=== PATIENT | female | born 1990 | race Caucasian/White ===

== ENCOUNTER 2020-10-27 14:08 | Emergency (ER) | payer OTHER ==
[2020-10-27] MEDS ORDERED: SODIUM CHLORIDE 0.9% 1,000 ML IV STA (15:32)
[2020-10-27] MEDS ORDERED: diphenhydrAMINE 50 MG/ML 1 ML VIAL IVP STA (15:32)
[2020-10-27] MEDS ORDERED: methylPREDNISolone SOD SUCCI 125 MG/2 ML VIAL IV STA (15:33)
--- NOTE | 2020-10-27 15:41 | ED ---
Headache HPI - General Chief Complaint: Headache Stated Complaint: headache Source: patient, RN notes reviewed, old records reviewed Mode of arrival: ambulatory Limitations: no limitations - History of Present Illness Initial Comments: 30-year-old white female patient presents to the emergency room with complaints of a headache that started yesterday at 1 PM and has gradually gotten worse. Patient states that she took a nap to relieve the headache but woke up and still had it. Patient states that she feels the pain is worsening behind her left eye and into her left mormonism and radiates on the left side of her face. She states that she feels like her ear is plugged. Patient states that she has had history migraine headaches in the past and was prescribed Imitrex back in February but that did not relieve her pain so she stopped taking it. Patient states that she's been having headaches for the past week every day however this is much worse. Denies any medicine on a daily basis no medical history and no surgeries. She denies any fevers but does state that she has nausea when she tries to eat. MD Complaint: headache -: days(s) (1) Onset Description: gradual Location: left, temporal, retro-orbital (Behind left eye) Severity: severe Severity scale (1-10): 9 Quality: throbbing, worst headache of life Consistency: constant Worsens With: exertion/activity, light, noise Context: occurred at rest (Woke up with headache) Associated Symptoms: nausea, photophobia, sensitivity to sound, weakness, other (Had slurred speech this morning) Treatments Prior to Arrival: none - Related Data On Hormonal Control: No Home Medications Medication Instructions Recorded Confirmed No Known Home Medications 10/27/20 10/27/20 Allergies Allergy/AdvReac Type Severity Reaction Status Date / Time No Known Allergies Allergy Verified 10/27/20 16:53 Review of Systems ROS Statement: Those systems with pertinent positive or pertinent negative responses have been documented in the HPI. ROS Other: All systems not noted in ROS Statement are negative. Past Medical History Past Medical History: No Reported History History of Any Multi-Drug Resistant Organisms: None Reported Past Surgical History: No Surgical Hx Reported Past Psychological History: No Psychological Hx Reported Smoking Status: Former smoker Past Alcohol Use History: None Reported Past Drug Use History: None Reported General Exam Limitations: no limitations General appearance: alert, in no apparent distress Head exam: Present: atraumatic, normocephalic, normal inspection Expanded Head exam: Absent: laceration, abrasion, hematoma, raccoon eyes, hernández's sign, CSF rhinorrhea, CSF otorrhea Eye exam: Present: normal appearance, PERRL, EOMI. Absent: scleral icterus, conjunctival injection, nystagmus, periorbital swelling, periorbital tenderness Pupils: Present: normal accommodation ENT exam: Present: normal exam, normal oropharynx, mucous membranes moist, TM's normal bilaterally Neck exam: Present: normal inspection, full ROM. Absent: tenderness, meningismus, lymphadenopathy, thyromegaly Respiratory exam: Present: normal lung sounds bilaterally. Absent: respiratory distress, wheezes, rales, rhonchi, stridor, chest wall tenderness, accessory muscle use, decreased breath sounds, prolonged expiratory Cardiovascular Exam: Present: regular rate, normal rhythm, normal heart sounds. Absent: systolic murmur, diastolic murmur, rubs, gallop, clicks GI/Abdominal exam: Present: soft, normal bowel sounds. Absent: distended, tenderness, guarding, rebound, rigid Extremities exam: Present: normal inspection, full ROM, normal capillary refill. Absent: tenderness, pedal edema, joint swelling, calf tenderness Back exam: Present: normal inspection, full ROM. Absent: tenderness, CVA tenderness (R), CVA tenderness (L), muscle spasm, paraspinal tenderness, vertebral tenderness, rash noted Neurological exam: Present: alert, oriented X3, CN II-XII intact Expanded Patient oriented to: Present: person, place, time Speech: Present: fluid speech Cranial nerves: EOM's Intact: Normal, Gag Reflex: Normal, Tongue Deviation: Normal, Facial Sensation: Normal Cerebellar function: Finger to Nose: Normal, Heel to Ritter: Normal Motor strength exam: RUE: 5, LUE: 5, RLE: 5, LLE: 5 Eye Response: (4) open spontaneously Motor Response: (6) obeys commands Verbal Response: (5) oriented [place] Total: 15 Psychiatric exam: Present: normal affect, normal mood Skin exam: Present: warm, dry, intact, normal color. Absent: rash, cyanosis, diaphoretic, erythema, petechiae, pallor, mottled Course Vital Signs 10/27/20 14:28 Temperature 98.3 F Pulse Rate 68 Respiratory 16 Rate Blood Pressure 121/85 O2 Sat by Pulse 100 Oximetry Medical Decision Making - Medical Decision Making CT of the brain without contrast shows no intracranial hemorrhage or mass effect no midline shift. The globes are intact. Sinuses are clear. Recent states relief with 1 L of normal saline, Benadryl and Solu-Medrol. She will be directed to follow up with her primary care doctor next week for continuation of care for migraine headaches. Disposition Clinical Impression: Headache Disposition: HOME SELF-CARE Condition: Good Instructions (If sedation given, give patient instructions): Acute Headache (ED) Additional Instructions: Follow-up with your primary care doctor in 1 week, continue hydration, Tylenol and or Motrin for headaches. Return to the emergency room with worsening pain or symptoms. Is patient prescribed a controlled substance at d/c from ED?: No Referrals: NIYA OVALLE DO [Primary Care Provider] - 1-2 days Time of Disposition: 16:53
--- NOTE | 2020-10-27 16:40 | CT ---
EXAMINATION TYPE: CT brain wo con DATE OF EXAM: 10/27/2020 COMPARISON: None. HISTORY: Headache. CT DLP: 1091.4 mGycm. Automated Exposure Control for Dose Reduction was Utilized. TECHNIQUE: CT scan of the head is performed without contrast. FINDINGS: There is no acute intracranial hemorrhage, mass effect, or midline shift identified. The ventricles and sulci are within normal limits in size. [place]-white matter differentiation is [place]. The globes are intact and the visualized sinuses are clear. IMPRESSION: Unremarkable study.
[2020-10-27 17:31] VITALS: BP 138/85; PULSE 57; RESP 18; TEMP 98
== END 2020-10-27 17:25 | disposition home or self-care (01) ==
LOC: EC 14:08
DX: R51.9 Headache, unspecified (principal); R11.0 Nausea; R53.1 Weakness; H53.142 Visual discomfort, left eye; Z87.891 Personal history of nicotine dependence
CPT/HCPCS: 70450; 99285; 96374; 96375; 96361; J1200; J2930